=== PATIENT | female | born 1970 | race Caucasian/White ===

== ENCOUNTER 2021-01-01 17:53 | Observation (INO) ==
[2021-01-01] MEDS ORDERED: NS 0.9% 1000 ml BAG 1,000 ML IV ONE (18:19)
[2021-01-01] MEDS ORDERED: Iodixanol (CONTRAST) 320 MG/ML 100 ML SDV IV ONE (18:26)
[2021-01-01 18:31] LABS: ABS Eosinophils 0.2 10^3/ul (0-0.6); ABS Lymphocytes 2.5 10^3/ul (1.0-4.8); ABS Monocytes 0.5 10^3/ul (0-0.8); Eosinophil % 3.5 %; Hematocrit 37 % (35-47); Hemoglobin 12.1 g/dL (12.0-16.0); Lymphocyte % 39.9 %; Mean Corpuscular HGB Conc 33 g/dL (31-36); Mean Corpuscular Hemoglobin 29 pg (27-31); Mean Corpuscular Volume 88 fL (80-97); Mean Platelet Volume 8.4 fL (7.4-10.4); Nucleated Red Blood Cells % 0.1; Platelet Count 241 10^3/uL (150-450); Red Blood Count 4.21 10^6 /uL (3.70-4.87); Red Cell Distribution Width 14 % (10-15); White Blood Count 6.4 10^3/uL (3.5-10.8)
[2021-01-01 18:39] LABS: INR 1.07 (0.86-1.15)
[2021-01-01 18:42] LABS: Albumin 4.2 g/dL (3.2-5.2); Calcium 8.7 mg/dL (8.6-10.3); Potassium 3.9 mmol/L (3.5-5.0); Total Bilirubin 0.6 mg/dL (0.2-1.0)
[2021-01-01] MEDS ORDERED: Aspirin EC 81 mg TAB.EC (enteric coated) PO ONE (18:44)
[2021-01-01 18:48] LABS: Albumin/Globulin Ratio 1.4 (1-3); EGFR Non-African American 107.5 (>60); Globulin 2.9 g/dL (2-4); HDL Cholesterol 56.5 mg/dL; Total Protein 7.1 g/dL (6.4-8.9)
[2021-01-02 05:31] LABS: ABS Eosinophils 0.1 10^3/ul (0-0.6); ABS Lymphocytes 1.9 10^3/ul (1.0-4.8); ABS Monocytes 0.4 10^3/ul (0-0.8); ABS Neutrophils 2.2 10^3/ul (1.5-7.7); Eosinophil % 2.7 %; Hematocrit 35 % (35-47); Hemoglobin 11.2 g/dL (12.0-16.0); Lymphocyte % 41.6 %; Mean Corpuscular HGB Conc 32 g/dL (31-36); Mean Corpuscular Hemoglobin 28 pg (27-31); Mean Corpuscular Volume 88 fL (80-97); Mean Platelet Volume 8.8 fL (7.4-10.4); Nucleated Red Blood Cells % 0.1; Platelet Count 214 10^3/uL (150-450); Red Blood Count 3.97 10^6 /uL (3.70-4.87); Red Cell Distribution Width 13 % (10-15); White Blood Count 4.5 10^3/uL (3.5-10.8)
[2021-01-02 05:38] LABS: INR 1.17 (0.86-1.15)
[2021-01-02 05:54] LABS: Calcium 8.4 mg/dL (8.6-10.3); EGFR African American 114.2 (>60); EGFR Non-African American 94.4 (>60); HDL Cholesterol 51.4 mg/dL; Potassium 3.9 mmol/L (3.5-5.0)
[2021-01-02] MEDS ORDERED: Magnesium Sulfate 2 gm BAG 2 GM/50 ML BAG IVPB ONE (07:30)
[2021-01-02] MEDS ORDERED: Perflutren Lipid Microsphere 3 ML VIAL ONE (08:02)
[2021-01-02] MEDS ORDERED: Aspirin EC 81 mg TAB.EC (enteric coated) PO SCH (09:00)
[2021-01-02 15:34] VITALS: BP 131/71
[2021-01-02] MEDS ORDERED: Butalb/Acetamin/Caff TAB 325-50-40MG PO ONE (19:00)
== END 2021-01-02 23:05 | disposition home or self-care (01) ==
LOC: ED 17:53 → MED 17:53 → SUATTDRO 23:21
PROVIDERS: ADMIT Internal Medicine; ATTEND Hospitalist